=== PATIENT | male | born 1960 | race Two or more races ===

== ENCOUNTER 2019-08-31 08:50 | Outpatient (CLI) | payer OTHER | END 2019-08-31 09:04 | disposition home or self-care (01) | LOC: NUCLEAR 08:50 | DX: C77.0 Secondary and unspecified malignant neoplasm of lymph nodes of head, face and neck (principal); D48.3 Neoplasm of uncertain behavior of retroperitoneum; C90 Multiple myeloma and malignant plasma cell neoplasms | CPT/HCPCS: 78816; A9552 ==

== ENCOUNTER 2020-03-20 09:42 | Outpatient (CLI) | payer OTHER | END 2020-03-20 09:56 | disposition home or self-care (01) | LOC: TOM 09:42 | PROVIDERS: ATTEND Internal Medicine Hematology & Oncology | DX: D48.3 Neoplasm of uncertain behavior of retroperitoneum (principal) | CPT/HCPCS: 74177; Q9965 ==

== ENCOUNTER 2020-04-19 13:23 | Outpatient (CLI) | payer OTHER | END 2020-04-19 13:31 | disposition home or self-care (01) | LOC: SONOGRAMA 13:23 | PROVIDERS: ATTEND Orthopaedic Surgery | DX: M25.512 Pain in left shoulder (principal) ==

== ENCOUNTER → 2020-11-13 | Outpatient (CLI) | payer OTHER | END | disposition home or self-care (01) | LOC: TOM 09:26 | PROVIDERS: ATTEND Internal Medicine Hematology & Oncology | DX: I25.10 Atherosclerotic heart disease of native coronary artery without angina pectoris (principal); D48.3 Neoplasm of uncertain behavior of retroperitoneum; K40.20 Bilateral inguinal hernia, without obstruction or gangrene, not specified as recurrent | CPT/HCPCS: 74177; Q9965 ==

== ENCOUNTER 2021-04-12 07:15 | Outpatient (CLI) | payer OTHER | END 2021-04-12 07:25 | disposition home or self-care (01) | LOC: TOM 07:15 | PROVIDERS: ATTEND Internal Medicine Rheumatology | DX: R10.84 Generalized abdominal pain (principal); M35.89 Other specified systemic involvement of connective tissue | CPT/HCPCS: 74177; Q9965 ==

== ENCOUNTER 2021-07-16 12:05 | Outpatient (CLI) | payer OTHER | END 2021-07-16 12:15 | disposition home or self-care (01) | LOC: SONOGRAMA 12:05 | PROVIDERS: ATTEND Urology | DX: Q55.29 Other congenital malformations of testis and scrotum (principal); N50.89 Other specified disorders of the male genital organs; N43.2 Other hydrocele ==

== ENCOUNTER 2021-09-14 09:27 | Outpatient (CLI) | payer OTHER | END 2021-09-14 09:38 | disposition home or self-care (01) | LOC: RAD 09:27 | PROVIDERS: ATTEND Internal Medicine Rheumatology | DX: M16.12 Unilateral primary osteoarthritis, left hip (principal) ==

== ENCOUNTER 2021-09-18 08:12 | Outpatient (CLI) | payer OTHER | END 2021-09-18 08:15 | disposition home or self-care (01) | LOC: NUCLEAR 08:12 | PROVIDERS: ATTEND Internal Medicine Rheumatology | DX: M35.89 Other specified systemic involvement of connective tissue (principal) | CPT/HCPCS: 78816; A9552 ==

== ENCOUNTER 2022-12-05 07:41 | Outpatient (CLI) | payer OTHER | END 2022-12-05 07:42 | disposition home or self-care (01) | LOC: NUCLEAR 07:41 | PROVIDERS: ATTEND Internal Medicine Hematology & Oncology | DX: N13.5 Crossing vessel and stricture of ureter without hydronephrosis (principal); K66.8 Other specified disorders of peritoneum | CPT/HCPCS: 78815; A9552 ==

== ENCOUNTER 2023-01-28 07:55 | Outpatient (CLI) | payer OTHER | END 2023-01-28 07:58 | disposition home or self-care (01) | LOC: NUCLEAR 07:55 | PROVIDERS: ATTEND Internal Medicine | DX: I25.118 Atherosclerotic heart disease of native coronary artery with other forms of angina pectoris (principal); R07.9 Chest pain, unspecified | CPT/HCPCS: 78452; 93017; A9500 ==

== ENCOUNTER 2024-05-05 07:57 | Outpatient (CLI) | payer OTHER | END 2024-05-05 07:58 | disposition home or self-care (01) | LOC: NUCLEAR 07:57 | PROVIDERS: ATTEND Internal Medicine Rheumatology | DX: M35.89 Other specified systemic involvement of connective tissue (principal) | CPT/HCPCS: 78815; A9552 ==